=== PATIENT | female | born 1985 | race Caucasian/White ===

== ENCOUNTER 2016-08-22 09:47 | Emergency (ER) | payer BC ==
[~2016-08-22] VITALS: Ht 162.6 cm; Wt 90.7 kg
[2016-08-22 09:47] VITALS: BP 133/96
[~2016-08-22 09:47] MED LIST: AMBIEN 5 MG TABL5 MG; AMOXICILLIN500 M1 PO; AMOXICILLIN875 MG PO; ANALPRAM HC 1%30 GM RECTAL; APAP500; CEPACOL SORE T1 EAC7 MM; DERMOPLAST SPRA56 ML; DIABETA 2.5MG2.5 MG PO; IRON325; LANOLIN56 GM; LORTABELXR PO; NORCO 5-325 TA1 EACH; NORCO 5-325 TA1 EACH PO; PERIDEX 0.12%473 M1 SWISH&SPIT; PHENTERMINE H37.5 M1 PO; PRENATAL; SENNA; SENOKOT-S1 TA1 PO; TUCKS MEDICATE1 EAC1; TUCKS1 EAC1 TP
[2016-08-22 10:09] LABS: URINE BILIRUBIN NEGATIVE (Negative); URINE BLOOD TRACE (Negative); URINE COLOR YELLOW; URINE GLUCOSE-RANDOM* NEGATIVE (Negative); URINE KETONES NEGATIVE (Negative); URINE LEUKOCYTES-REFLEX 2+ (Negative); URINE PROTEIN (DIPSTICK) NEGATIVE (Negative); URINE SPECIFIC GRAVITY >= 1.030 (1.003-1.035); URINE UROBILINOGEN 0.2 E.U./dl (0.2-1.0)
[2016-08-22 10:27] LABS: SQUAMOUS >10 Many /LPF (0-3)
[2016-08-22 10:28] LABS: AMORPHOUS URATES Moderate /LPF (None Seen); CASTS None Seen /LPF (None Seen); URINE RBC 0-2 Rare /HPF (0-2); URINE WBC-REFLEX >25 Many /HPF (0-5)
[2016-08-23 16:09] LABS: CHLAMYDIA TRACHOMATIS-PCR Negative (Negative); NEISSERIA GONORRHEA-PCR Negative (Negative)
== END 2016-08-22 10:54 | disposition home or self-care (01) ==
LOC: ER 09:47
PROVIDERS: Physician Assistant
DX: A63.0 Anogenital (venereal) warts (principal); Z11.3 Encounter for screening for infections with a predominantly sexual mode of transmission; Z88.6 Allergy status to analgesic agent; F17.210 Nicotine dependence, cigarettes, uncomplicated